=== PATIENT | female | born 2005 | race Caucasian/White ===

== ENCOUNTER 2024-12-05 20:18 | Emergency (ER) | payer BC ==
[2024-12-05] MEDS: Ibuprofen 800 MG Tab PO ONE (20:36)
[2024-12-05] MEDS: Lidocaine 1% 5 ML VIAL INJECT ONE (21:13)
== END 2024-12-05 21:56 | disposition home or self-care (01) ==
LOC: DL.ED 20:18
DX: S63.286A Dislocation of proximal interphalangeal joint of right little finger, initial encounter (principal); X58.XXXA Exposure to other specified factors, initial encounter; Y93.68 Activity, volleyball (beach) (court)
CPT/HCPCS: 26770; 73140; 99283; A9270; J2003